=== PATIENT | male | born 1935 | race Caucasian/White ===

== ENCOUNTER 2020-07-28 11:30 | Observation (INO) | payer MEDICARE ==
[~2020-07-28] VITALS: Ht 170.2 cm; Wt 79.4 kg
[2020-07-28] MEDS ORDERED: SODIUM CHLORIDE 0.9% 1000ML 1,000 ML IV STA (12:00)
[2020-07-28] MEDS ORDERED: SODIUM CHLORIDE 0.9% 1000ML 1,000 ML ONE (12:11)
[2020-07-28 12:22] LABS: BASOPHILS # (AUTO) 0.1 (0.0-0.1); BASOPHILS % 0.8 % (0.0-1.0); EOSINOPHILS # (AUTO) 0.1 (0.0-0.4); EOSINOPHILS % 1.6 % (0.0-6.0); HEMATOCRIT 35.8 % (38.2-49.6); LYMPHOCYTES # (AUTO) 3.2 (1.0-3.2); LYMPHOCYTES % 50.6 % (18.0-39.1); MEAN CORPUSCULAR HEMOGLOBIN 31.3 pg (28-32); MEAN CORPUSCULAR HGB CONC 33.5 g/dL (31-35); MEAN CORPUSCULAR VOLUME 93.2 fL (81-99); MONOCYTES # (AUTO) 0.6 (0.2-0.8); MONOCYTES % 10.1 % (4.4-11.3); NEUTROPHILS # (AUTO) 2.3 (2.1-6.9); NEUTROPHILS % 36.7 % (38.7-80.0); PLATELET COUNT 259 x10e3/uL (140-360); RED BLOOD COUNT 3.84 x10e6/uL (4.3-5.7); RED CELL DISTRIBUTION WIDTH 12.5 % (11.7-14.4)
[2020-07-28 12:30] LABS: CLARITY,URINE CLEAR (CLEAR); COLOR,URINE YELLOW (YELLOW); KETONES,URINE NEGATIVE (NEGATIVE); LEUKOCYTE ESTERASE ,URINE NEGATIVE (NEGATIVE); NITRITE,URINE NEGATIVE (NEGATIVE)
[2020-07-28 12:31] LABS: PROTEIN,URINE DIPSTICK 1+ (NEGATIVE); URINE UROBILINOGEN 0.2 mg/dL (0.2 - 1)
[2020-07-28 12:32] LABS: INR 0.88; PROTHROMBIN TIME 12.5 seconds (11.9-14.5)
[2020-07-28 12:33] LABS: PARTIAL THROMBOPLASTIN TIME 28.2 seconds (23.8-35.5)
[2020-07-28 12:37] LABS: ALBUMIN 3.5 g/dL (3.5-5.0); ALBUMIN/GLOBULIN RATIO 0.7 (0.8-2.0); ANION GAP 15.3 mmol/L (8-16); CALCIUM 8.6 mg/dL (8.4-10.2); CREATININE, SERUM 1.37 mg/dL (0.72-1.25); MAGNESIUM 1.9 MG/DL (1.3-2.1); POTASSIUM 4.3 mmol/L (3.5-5.1)
[2020-07-28 12:44] LABS: CREATINE KINASE MB 1.5 ng/mL (0-5.0)
[2020-07-28 12:57] LABS: BACTERIA,URINE MANY /HPF; EPITHELIAL CELLS,URINE FEW /LPF; MUCUS,URINE FEW (RARE)
[2020-07-28] MEDS ORDERED: CEFTRIAXONE SOD 1 GM/50 ML BAG IV ONE (13:45)
[2020-07-28] MEDS ORDERED: CEFTRIAXONE SOD 1 GM in SODIUM CHLORIDE 0.9% 50ML 50 ML IV ONE (14:00)
[2020-07-28] MEDS ORDERED: ONDANSETRON HCL INJ 2MG/ML 2ML 2 MG/ML VIAL IV PRN (15:15)
[2020-07-28] MEDS ORDERED: SODIUM CHLORIDE 0.9% 1000ML 1,000 ML IV ONE (15:15)
[2020-07-28] MEDS ORDERED: ACETAMINOPHEN 325 MG TAB PO PRN (15:45)
[2020-07-28] MEDS: FAMOTIDINE 20 MG/2 ML VIAL IV SCH (17:01)
[2020-07-28] MEDS: HYDRALAZINE HCL 20 MG/ML VIAL IV PRN ×2 (17:19→17:25)
[2020-07-28 20:00] VITALS: BP 167/70
[2020-07-28 20:13] VITALS: BP 171/77
[2020-07-28 20:20] VITALS: BP 171/77
[2020-07-28] MEDS: LOSARTAN POTASSIUM 100 MG TAB PO SCH (22:45)
[2020-07-28] MEDS ORDERED: LORAZEPAM 0.5 MG TAB PO PRN (22:45)
[2020-07-28] MEDS ORDERED: FLOMAX0.4 MG PO (23:29)
[2020-07-28] MEDS ORDERED: FINASTERIDE5 MG PO (23:29)
[2020-07-28] MEDS ORDERED: OMEPRAZOLE (23:29)
[2020-07-29 00:01] VITALS: BP 146/53
[2020-07-29] MEDS: FAMOTIDINE 20 MG/2 ML VIAL IV SCH ×2 (03:02→15:15)
[2020-07-29 04:00] VITALS: BP 155/83
[2020-07-29 05:48] LABS: BASOPHILS % 0.4 % (0.0-1.0); EOSINOPHILS # (AUTO) 0.1 (0.0-0.4); EOSINOPHILS % 1.6 % (0.0-6.0); HEMATOCRIT 32.4 % (38.2-49.6); LYMPHOCYTES % 38.7 % (18.0-39.1); MEAN CORPUSCULAR HEMOGLOBIN 31.3 pg (28-32); MONOCYTES # (AUTO) 0.5 (0.2-0.8); MONOCYTES % 9.3 % (4.4-11.3); NEUTROPHILS # (AUTO) 2.5 (2.1-6.9); NEUTROPHILS % 49.6 % (38.7-80.0); PLATELET COUNT 225 x10e3/uL (140-360); RED BLOOD COUNT 3.52 x10e6/uL (4.3-5.7); RED CELL DISTRIBUTION WIDTH 12.4 % (11.7-14.4)
[2020-07-29 06:29] LABS: ALANINE AMINOTRANSFERASE 15 IU/L (0-55); ALBUMIN 3.1 g/dL (3.5-5.0); ALBUMIN/GLOBULIN RATIO 0.7 (0.8-2.0); ALKALINE PHOSPHATASE 93 IU/L (40-150); ANION GAP 12.9 mmol/L (8-16); BLOOD UREA NITROGEN 14 mg/dL (7-26); BUN/CREATININE RATIO 12 (6-25); CALCIUM 8.1 mg/dL (8.4-10.2); CARBON DIOXIDE 22 mmol/L (22-29); CHLORIDE 104 mmol/L (98-107); CHOL/HDL RATIO 3.4 (3.9-4.7); CHOLESTEROL 169 MD/DL (0-199); CREATININE, SERUM 1.14 mg/dL (0.72-1.25); EST GLOMERULAR FILTRATION RATE > 60 ML/MIN (60-); GLUCOSE 111 mg/dL (74-118); HDL CHOLESTEROL 50 MG/DL (40-60); LDL CHOLESTEROL 107 MG/DL (60-130); POTASSIUM 3.9 mmol/L (3.5-5.1); SODIUM 135 mmol/L (136-145); TRIGLYCERIDES 58 MG/DL (0-149)
[2020-07-29 07:51] VITALS: BP 167/68
[2020-07-29 08:16] VITALS: BP 167/68
[2020-07-29] MEDS ORDERED: ASPIRIN 81 MG ENTERIC COATED PO SCH (09:00)
[2020-07-29] MEDS: LOSARTAN POTASSIUM 100 MG TAB PO SCH (09:00)
[2020-07-29 09:38] LABS: CREATINE KINASE MB 1.3 ng/mL (0-5.0)
[2020-07-29] MEDS ORDERED: LOSARTAN POTASS25 MG PO (13:42)
[2020-07-29 15:30] LABS: CREATINE KINASE MB 1.4 ng/mL (0-5.0)
[2020-07-29] MEDS ORDERED: FINASTERIDE 5 MG TAB PO SCH (21:00)
== END 2020-07-29 15:40 | disposition home or self-care (01) ==
LOC: ER 11:46 → ERHOLD 15:15 → MED/SURG 18:30
PROVIDERS: ADMIT Internal Medicine; ATTEND Internal Medicine
DX: I49.5 Sick sinus syndrome (principal); I10 Essential (primary) hypertension; N17.9 Acute kidney failure, unspecified; N40.0 Benign prostatic hyperplasia without lower urinary tract symptoms; F41.9 Anxiety disorder, unspecified; Z20.822 Contact with and (suspected) exposure to COVID-19; W19.XXXA Unspecified fall, initial encounter; H91.90 Unspecified hearing loss, unspecified ear
CPT/HCPCS: 36415 ×2; 70450; 71045; 72125; 80053 ×2; 80061; 81001; 82550 ×2; 82553 ×2; 83735; 83880; 84443; 84484 ×2; 85025 ×2; 85610; 85730; 87086; 93005; 93306; 99284; G0378 ×2; J0696; J7030; U0002

== ENCOUNTER 2020-11-06 19:58 | Emergency (ER) | payer MEDICARE ==
[~2020-11-06] VITALS: Ht 322.6 cm; Wt 79.4 kg
[~2020-11-06 19:58] MED LIST: FINASTERIDE5 MG PO; FLOMAX0.4 MG PO; LOSARTAN POTASS25 MG PO; OMEPRAZOLE
[2020-11-06 21:33] LABS: ALBUMIN 3.6 g/dL (3.5-5.0); ALBUMIN/GLOBULIN RATIO 0.8 (0.8-2.0); ANION GAP 13.4 mmol/L (8-16); CALCIUM 8.6 mg/dL (8.4-10.2); CREATININE, SERUM 1.64 mg/dL (0.72-1.25); POTASSIUM 4.4 mmol/L (3.5-5.1)
[2020-11-06 21:40] LABS: BASOPHILS % 0.6 % (0.0-1.0); EOSINOPHILS % 0.6 % (0.0-6.0); HEMATOCRIT 33.2 % (38.2-49.6); HEMOGLOBIN 11.2 g/dL (14.0-18.0); LYMPHOCYTES # (AUTO) 1.7 (1.0-3.2); LYMPHOCYTES % 25.6 % (18.0-39.1); MEAN CORPUSCULAR HEMOGLOBIN 31.1 pg (28-32); MEAN CORPUSCULAR HGB CONC 33.7 g/dL (31-35); MEAN CORPUSCULAR VOLUME 92.2 fL (81-99); MONOCYTES # (AUTO) 0.6 (0.2-0.8); MONOCYTES % 9.1 % (4.4-11.3); NEUTROPHILS # (AUTO) 4.3 (2.1-6.9); NEUTROPHILS % 63.4 % (38.7-80.0); PLATELET COUNT 298 x10e3/uL (140-360); RED CELL DISTRIBUTION WIDTH 12.4 % (11.7-14.4)
[2020-11-06] MEDS ORDERED: SODIUM CHLORIDE 0.9% 1000ML 1,000 ML IV SCH (21:45)
[2020-11-06] MEDS ORDERED: SODIUM CHLORIDE 0.9% 50ML 50 ML ONE (22:59)
[2020-11-06] MEDS ORDERED: IOPAMIDOL 370 MG/ML 200 ML INFUS..BTL INJ ONE (23:00)
[2020-11-06] MEDS ORDERED: CHLORPROMAZINE HCL INJ 25 MG/ML AMP IM ONE (23:30)
[2020-11-06] MEDS ORDERED: CHLORPROMAZINE HCL INJ 25 MG/ML AMP ONE (23:37)
== END 2020-11-07 00:50 | disposition home or self-care (01) ==
LOC: ER 21:49
DX: R06.6 Hiccough (principal); K21.9 Gastro-esophageal reflux disease without esophagitis
CPT/HCPCS: 36415; 71045; 74177; 80053; 84484; 85025; 99284; C9113; J3230; J7030; Q9967